=== PATIENT | male | born 1970 | race African-American/Black ===

== ENCOUNTER 2022-01-27 11:41 | Emergency (ER) | payer MEDICAID ==
[~2022-01-27] VITALS: Ht 180.3 cm; Wt 59.0 kg
[2022-01-27] MEDS ORDERED: SODIUM CHLORIDE 0.9% 500 ML IV ONE (12:00)
[2022-01-27] MEDS ORDERED: HYDROmorphone HCL 2 MG/ML VL/or syr IV ONE ×2 (12:00→20:15)
[2022-01-27] MEDS ORDERED: ONDANSETRON HCL 4 MG/2 ML VIAL IV ONE ×2 (12:00→20:15)
[2022-01-27 12:56] LABS: Basophils # (auto) 0 10 ^3/uL (0-0.2); Monocytes # (auto) 0.3 10 ^3/uL (0-1.3)
[2022-01-27 12:58] LABS: Basophils % (auto) 0.9 % (0.0-2.0); Eosinophils # (auto) 0.1 10 ^3/uL (0-0.8); Eosinophils % (auto) 2.8 % (0.0-7.0); Hematocrit 39.5 % (41.0-53.0); Lymphocytes # (auto) 1.2 10 ^3/uL (0.4-5.4); Lymphocytes % (auto) 22.2 % (10.0-50.0); Mean Corpuscular Hemoglobin 26.9 pg (28.0-32.0); Mean Corpuscular Hgb Conc. 32.9 g/dL (32.0-36.0); Mean Corpuscular Volume 81.9 fL (80.0-100.0); Monocytes % (auto) 4.9 % (0.0-12.0); Neutrophils # (auto) 3.7 10 ^3/uL (1.6-8.6); Neutrophils % (auto) 69.2 % (37.0-80.0); Nucleated Red Blood Cells % 0.2 %; Red Blood Cells 4.82 10^6/uL (4.5-5.90); White Blood Cell 5.3 10^3/uL (4.4-10.8)
[2022-01-27 13:08] LABS: Albumin 3.7 g/dL (3.4-5.0); Calcium 9.2 mg/dL (8.5-10.1); Potassium 4.3 mmol/L (3.5-5.1)
[2022-01-27 13:12] LABS: Bilirubin, Total 0.6 mg/dL (0.2-1.0); Total Protein 6.9 g/dL (6.4-8.2)
[2022-01-27 17:26] VITALS: BP 117/88
[2022-01-27] MEDS ORDERED: HYDROcodone-ACET 10/325MG TAB PO ONE (22:15)
== END 2022-01-27 23:04 | disposition home or self-care (01) ==
LOC: ER 11:41 → EDBD 11:41 → EDUNIT# 11:41 → ER 23:04
DX: M48.02 Spinal stenosis, cervical region (principal); I10 Essential (primary) hypertension; G82.52 Quadriplegia, C1-C4 incomplete; R51.9 Headache, unspecified; W05.0XXA Fall from non-moving wheelchair, initial encounter; Y93.89 Activity, other specified; Y92.89 Other specified places as the place of occurrence of the external cause; Y99.8 Other external cause status
CPT/HCPCS: 36415; 70450; 72125; 72141; 74018; 80053; 84484; 85025; 96361; 96374; 96375; 99285; J1170; J2405; J7040

== ENCOUNTER 2023-02-03 18:04 | Emergency (ER) | payer MEDICAID ==
[~2023-02-03] VITALS: Ht 180.3 cm; Wt 70.5 kg
[~2023-02-03 18:04] MED LIST: BACL20TA PO; CIPR-173 PO; EMOLOIN EX; GABA-1250 PO; HYDR-4072; OXY20CRT PO
[2023-02-03] MEDS ORDERED: MORPHINE SULFATE 4 MG/ML SYR/VIAL IV ONE (19:00)
[2023-02-03 19:31] LABS: Basophils # (auto) 0 10 ^3/uL (0-0.2); Eosinophils # (auto) 0.4 10 ^3/uL (0-0.8); Hemoglobin 9.9 g/dL (13.5-17.5); Monocytes # (auto) 0.3 10 ^3/uL (0-1.3); White Blood Cell 5.2 10^3/uL (4.4-10.8)
[2023-02-03 19:33] LABS: Basophils % (auto) 0.9 % (0.0-2.0); Eosinophils % (auto) 7.5 % (0.0-7.0); Hematocrit 31.9 % (41.0-53.0); Lymphocytes # (auto) 1.7 10 ^3/uL (0.4-5.4); Lymphocytes % (auto) 33.2 % (10.0-50.0); Mean Corpuscular Hgb Conc. 31.1 g/dL (32.0-36.0); Mean Corpuscular Volume 77.1 fL (80.0-100.0); Monocytes % (auto) 6.4 % (0.0-12.0); Neutrophils # (auto) 2.7 10 ^3/uL (1.6-8.6); Nucleated Red Blood Cells % 0.1 %; Red Blood Cells 4.13 10^6/uL (4.5-5.90)
[2023-02-03 19:59] LABS: Alanine Aminotransferase 10 U/L (7-40); Albumin 3.5 g/dL (3.2-4.8); Alkaline Phosphatase 83 U/L (46-116); Anion Gap 8 (5-15); Aspartate Aminotransferase 13 U/L (13-40); BUN/Creatinine Ratio 11.1 (10.0-20.0); Bilirubin, Total 0.3 mg/dL (0.2-1.0); Blood Urea Nitrogen 6 mg/dL (9-23); Calcium 8.9 mg/dL (8.5-10.1); Carbon Dioxide 25 mmol/L (20-30); Chloride 107 mmol/L (98-107); Glucose 117 mg/dL (74-106); Potassium 3.9 mmol/L (3.5-5.1); Sodium 140 mmol/L (136-145); Total Protein 6.5 g/dL (5.7-8.2)
[2023-02-03] MEDS ORDERED: IOHEXOL 300 MG/ML 100ML BOTTLE IJ ONE (20:09)
[2023-02-03 20:13] VITALS: PULSE 85; RESP 16; TEMP 98.1; O2SAT 98
[2023-02-03 22:06] LABS: Urine Bacteria FEW /hpf (None Seen); Urine Blood 1+ /uL (Negative); Urine Clarity Clear (Clear); Urine Color Yellow (Yellow); Urine Mucus FEW (None Seen); Urine Protein, UAD 1+ (Negative); Urine Specific Gravity 1.017 (1.001-1.035); Urine Urobilinogen Normal (Negative); Urine WBC 4 /hpf (0 - 3); Urine pH 6.5 (5.0-8.0)
[2023-02-04 07:30] VITALS: PULSE 80; RESP 16; O2SAT 95
[2023-02-04 10:20] VITALS: BP 113/80; PULSE 81; RESP 18; O2SAT 96
== END 2023-02-04 10:22 | disposition home or self-care (01) ==
LOC: ER 18:04 → EDBD 18:04 → ER 02-04 10:22
DX: R10.9 Unspecified abdominal pain (principal); J45.909 Unspecified asthma, uncomplicated; E78.5 Hyperlipidemia, unspecified; Z88.0 Allergy status to penicillin; Z46.6 Encounter for fitting and adjustment of urinary device; I10 Essential (primary) hypertension
CPT/HCPCS: 36415; 74177; 80053; 81001; 85025; 93005; 96374; 99285; J2270; Q9967

== ENCOUNTER 2023-02-23 21:57 | Emergency (ER) | payer MEDICAID ==
[~2023-02-23] VITALS: Ht 162.6 cm; Wt 60.0 kg
[2023-02-24 00:15] VITALS: BP 154/101; PULSE 90; RESP 18; TEMP 98.9; O2SAT 96
[2023-02-24] MEDS ORDERED: CIPR-173 PO (00:39)
[2023-02-24] MEDS ORDERED: LORazepam 0.5 MG TAB PO ONE ×2 (00:45→01:00)
[2023-02-24] MEDS ORDERED: ACETAMINOPHEN 325 MG TAB PO ONE (00:45)
[2023-02-24] MEDS ORDERED: IBUPROFEN 600 MG TAB PO ONE (00:45)
[2023-02-24] MEDS ORDERED: CIPROFLOXACIN HCL 500 MG TAB PO ONE (00:45)
== END 2023-02-24 01:42 | disposition home or self-care (01) ==
LOC: EDBD 21:57 → ER 21:57
DX: N39.0 Urinary tract infection, site not specified (principal); I10 Essential (primary) hypertension; J45.909 Unspecified asthma, uncomplicated; E11.9 Type 2 diabetes mellitus without complications; Z88.0 Allergy status to penicillin; Z79.2 Long term (current) use of antibiotics; Z79.899 Other long term (current) drug therapy